=== PATIENT | male | born 1975 | race Caucasian/White ===

== ENCOUNTER 2021-08-12 19:17 | Emergency (ER) | payer MEDICAID ==
[~2021-08-12] VITALS: Ht 160 cm; Wt 63.6 kg
[2021-08-12] MEDS ORDERED: ACETAMINOPHEN 500 MG TABLET PO ONE (20:30)
[2021-08-12] MEDS ORDERED: BUPIVACAINE HCL/PF 0.25% 10 ML VIAL SQ ONE (20:30)
[2021-08-12] MEDS ORDERED: POVIDONE-IODINE 10% 15 ML SOLUTION UD TP ONE (20:30)
[2021-08-12] MEDS ORDERED: IBUPROFEN 600 MG TABLET PO ONE (20:30)
[2021-08-12 20:35] LABS: BASOPHILS % (AUTO) 0.6 % (0.0-2.0); EOSINOPHILS % (AUTO) 0.7 % (1.0-6.0); LYMPHOCYTES % (AUTO) 15.8 % (22.0-44.0); MEAN CORPUSCULAR HEMOGLOBIN 29.3 pg (26.0-34.0); MEAN CORPUSCULAR HGB CONC 34.1 G/dL (31.0-37.0); MEAN CORPUSCULAR VOLUME 86 fL (80-100); MONOCYTES # (AUTO) 1.6 K/uL (0.1-1.0); MONOCYTES % (AUTO) 12.3 % (2.0-9.0); NEUTROPHILS % (AUTO) 70.6 % (40.0-70.0); PLATELET COUNT (AUTO) 229 K/uL (150-450); RED BLOOD CELL COUNT(AUTO) 5.12 MIL/uL (4.50-5.90); RED CELL DISTRIBUTION WIDTH 12.9 % (11.5-14.5)
[2021-08-12 20:42] LABS: ANION GAP 8 mmol/L (8-16); CALCIUM, TOTAL 9.1 mg/dL (8.8-10.5); CARBON DIOXIDE 27 mmol/L (22-29); CHLORIDE 97 mmol/L (98-107); CREATININE 0.79 mg/dL (0.60-1.30); GLOMERULAR FILTR. RATE CALC > 60 mL/min (>60); GLUCOSE,RANDOM 223 mg/dL (70-110); POTASSIUM 3.7 mmol/L (3.5-5.1); SODIUM SERUM 132 mmol/L (136-145); UREA NITROGEN, BLOOD 16 mg/dL (7-18)
[2021-08-12 20:57] LABS: LACTIC ACID 0.9 mmol/L (0.4-2.0)
[2021-08-12] MEDS ORDERED: CEPHALEXIN MONOHYDRATE 500 MG CAPSULE PO ONE (21:15)
[2021-08-12] MEDS ORDERED: SULFAMETHOX/TRIMETH DS 800-160 MG/TABLET PO ONE (21:15)
[2021-08-12 21:35] VITALS: BP 143/82
== END 2021-08-12 22:40 | disposition home or self-care (01) ==
LOC: EMS 19:38
DX: N49.2 Inflammatory disorders of scrotum (principal)
CPT/HCPCS: 55100; 80048; 83605; 85025; 36415; 99284; J3490

== ENCOUNTER 2024-12-29 15:53 | Inpatient (IN) | payer MEDICAID ==
[~2024-12-29] VITALS: Ht 162.6 cm; Wt 72.0 kg
[~2024-12-29 15:53] MED LIST: METF-1185 PO
[2024-12-29 16:21] LABS: GLUCOMETER DEV NAME(LOC) ERT.7; GLUCOSE,POINT OF CARE 488 MG/DL (70-110)
[2024-12-29 16:29] LABS: PLATELET COUNT (AUTO) 277 K/uL (150-450); RED BLOOD CELL COUNT(AUTO) 5.21 MIL/uL (4.50-5.90); RED CELL DISTRIBUTION WIDTH 13.0 % (11.5-14.5); WHITE BLOOD COUNT (AUTO) 14.4 K/uL (4.5-11.0)
[2024-12-29] MEDS: SODIUM CHLORIDE 0.9% 1,000 ML IV ONE (16:35)
[2024-12-29 16:38] LABS: CALCIUM, TOTAL 9.1 mg/dL (8.8-10.5); CREATININE 0.78 mg/dL (0.60-1.30); GLOMERULAR FILTR. RATE CALC > 60 mL/min (>60); SODIUM SERUM 130 mmol/L (136-145); UREA NITROGEN, BLOOD 27 mg/dL (7-18)
[2024-12-29 16:44] LABS: ASPARTATE AMINOTRANSFERASE 5 U/L (15-37); TOTAL PROTEIN, SERUM 7.6 g/dL (6.4-8.2)
[2024-12-29 16:45] LABS: ACETONE,BLOOD TRACE (NEGATIVE)
[2024-12-29] MEDS ORDERED: ONDANSETRON HCL 4 MG/2 ML VIAL IVP PRN (16:45)
[2024-12-29] MEDS ORDERED: ZOLPIDEM TARTRATE 5 MG TABLET PO PRN (16:45)
[2024-12-29] MEDS: *CLINICAL-CEFEPIME DOSING CLINICAL ONE (16:45)
[2024-12-29] MEDS ORDERED: MAGNESIUM HYDROXIDE SUSPENSION 30 ML UDCUP PO PRN (16:45)
[2024-12-29] MEDS ORDERED: DEXTROSE 50%-WATER 25 GM/50 ML SYRINGE IVP PRN (16:45)
[2024-12-29 16:47] LABS: LACTIC ACID 1.4 mmol/L (0.4-2.0)
[2024-12-29 16:53] LABS: GLUCOSE,RANDOM 464 mg/dL (70-110)
[2024-12-29] MEDS: VANCOMYCIN 1.25 GM/WATER(PEG) 250 ML IV ONE (17:03)
[2024-12-29] MEDS: CEFEPIME HCL 2 GM in DEXTROSE 5%-WATER 50 ML IV ONE (17:03)
[2024-12-29] MEDS ORDERED: 0.9% SODIUM CHLORIDE 10 ML SYRINGE IVP ONE (17:18)
[2024-12-29] MEDS ORDERED: SODIUM CHLORIDE 0.9% 100 ML ONE (17:18)
[2024-12-29] MEDS ORDERED: IOHEXOL 350 MG/ML 100 ML VIAL ONE (17:18)
[2024-12-29] MEDS: MORPHINE SULFATE 2 MG/ML SYRINGE IVP ONE (17:21)
[2024-12-29 17:23] LABS: APPEARANCE,URINE CLEAR (CLEAR); GLUCOSE, URINE (UA) >=1000 mg/dL (NEGATIVE); LEUKOCYTE ESTERASE ,URINE NEGATIVE (NEGATIVE); NITRATE,URINE NEGATIVE (NEGATIVE); OCCULT BLOOD,URINE NEGATIVE (NEGATIVE); SPECIFIC GRAVITIY, URINE 1.045 (1.003-1.030)
[2024-12-29] MEDS: INSULIN GLARGINE,HUM.REC.ANLOG 100 UNITS/ML SQ SCH (17:25)
[2024-12-29] MEDS: INSULIN REGULAR, HUMAN 100 UNITS/ML IVP ONE (17:43)
[2024-12-29 18:38] LABS: SQUAMOUS EPITHELIAL CELL,UR Rare /LPF (None Seen)
[2024-12-29 18:47] VITALS: BP 136/77; PULSE 67; RESP 18; TEMP 98.6; O2SAT 100
[2024-12-29 19:51] VITALS: BP 121/71; PULSE 66; RESP 18; TEMP 97.9; O2SAT 95
[2024-12-29] MEDS: ACETAMINOPHEN 325 MG TABLET PO PRN (20:26)
[2024-12-29] MEDS: INSULIN LISPRO 100 UNITS/ML SQ PRN (20:26)
[2024-12-29] MEDS: DOCUSATE SODIUM 100 MG CAPSULE PO SCH (20:27)
[2024-12-30] VITALS (11 sets, daily range): BP systolic 112–128; BP diastolic 68–83; PULSE 54–66; RESP 17–18; TEMP 97.9–99; O2SAT 95–100
[2024-12-30] MEDS ORDERED: HEPARIN SODIUM,PORCINE 5,000 UNITS/ML VIAL SQ SCH
[2024-12-30] MEDS ORDERED: SODIUM CHLORIDE 0.9% 500 ML IV ONE (00:09)
[2024-12-30] MEDS: VANCOMYCIN 750 MG/WATER(PEG) 150 ML IV SCH (00:11)
[2024-12-30] MEDS: CEFEPIME HCL 2 GM in DEXTROSE 5%-WATER 50 ML IV SCH (05:31)
[2024-12-30 08:33] LABS: CALCIUM, TOTAL 8.7 mg/dL (8.8-10.5); CREATININE 0.47 mg/dL (0.60-1.30); GLOMERULAR FILTR. RATE CALC > 60 mL/min (>60); GLUCOSE,RANDOM 238 mg/dL (70-110); SODIUM SERUM 136 mmol/L (136-145); UREA NITROGEN, BLOOD 25 mg/dL (7-18)
[2024-12-30] MEDS: FAMOTIDINE 20 MG TABLET PO SCH (08:44)
[2024-12-30 08:51] LABS: PLATELET COUNT (AUTO) 267 K/uL (150-450); RED BLOOD CELL COUNT(AUTO) 4.62 MIL/uL (4.50-5.90); RED CELL DISTRIBUTION WIDTH 12.8 % (11.5-14.5); WHITE BLOOD COUNT (AUTO) 12.5 K/uL (4.5-11.0)
[2024-12-30] MEDS: SODIUM CHLORIDE 0.9% 1,000 ML IV ONE (08:52)
[2024-12-30 09:06] LABS: GLUCOMETER DEV NAME(LOC) 6N.2C; GLUCOSE,POINT OF CARE 274 MG/DL (70-110)
[2024-12-30 09:06] LABS: GLUCOMETER DEV NAME(LOC) 6N.2C; GLUCOSE,POINT OF CARE 285 MG/DL (70-110)
[2024-12-30] MEDS ORDERED: PROPOFOL 1% 20 ML VIAL IVP ONE (09:35)
[2024-12-30] MEDS ORDERED: SUGAMMADEX SODIUM 200 MG/2 ML VIAL IVP ONE (09:35)
[2024-12-30] MEDS ORDERED: DEXAMETHASONE SOD PHOS 4 MG/ML VIAL ONE (09:35)
[2024-12-30] MEDS ORDERED: ONDANSETRON HCL 4 MG/2 ML VIAL ONE (09:35)
[2024-12-30] MEDS ORDERED: ROCURONIUM BROMIDE 10 MG/ML 5 ML VIAL ONE (09:35)
[2024-12-30] MEDS ORDERED: LIDOCAINE/PF 2% 5 ML VIAL ONE (09:35)
[2024-12-30] MEDS ORDERED: RINGERS SOLUTION,LACTATED 1,000 ML IV ONE (13:07)
[2024-12-30] MEDS ORDERED: BUPIVACAINE 0.25%/EPI 1:200,000/PF 10 ML VIAL ONE (13:09)
[2024-12-30] MEDS ORDERED: BUPIVACAINE HCL/PF 0.25% 30 ML VIAL ONE (13:24)
[2024-12-30] MEDS ORDERED: MEPERIDINE-PF 25 MG/ML VIAL IVP PRN (13:30)
[2024-12-30] MEDS ORDERED: FentaNYL CITRATE PF 100 MCG/2 ML VIAL IVP PRN (13:30)
[2024-12-30] MEDS: OXYGEN THERAPY IH SCH (22:52)
[2024-12-30 23:51] LABS: GLUCOMETER DEV NAME(LOC) 4E.2; GLUCOSE,POINT OF CARE 320 MG/DL (70-110)
[2024-12-31 05:39] VITALS: BP 129/89; PULSE 58; RESP 18; TEMP 98.1; O2SAT 98
[2024-12-31 07:19] LABS: CALCIUM, TOTAL 8.7 mg/dL (8.8-10.5); CREATININE 0.51 mg/dL (0.60-1.30); GLOMERULAR FILTR. RATE CALC > 60 mL/min (>60); GLUCOSE,RANDOM 199 mg/dL (70-110); SODIUM SERUM 138 mmol/L (136-145); UREA NITROGEN, BLOOD 18 mg/dL (7-18)
[2024-12-31 07:40] LABS: GLUCOMETER DEV NAME(LOC) 4E.2; GLUCOSE,POINT OF CARE 192 MG/DL (70-110)
[2024-12-31 08:40] VITALS: BP 108/72; PULSE 53; RESP 18; TEMP 98.1; O2SAT 98
[2024-12-31 09:10] LABS: GLUCOMETER DEV NAME(LOC) 4E.2; GLUCOSE,POINT OF CARE 223 MG/DL (70-110)
[2024-12-31 11:45] LABS: GLUCOMETER DEV NAME(LOC) 6N.2C; GLUCOSE,POINT OF CARE 265 MG/DL (70-110)
[2024-12-31 11:45] LABS: GLUCOMETER DEV NAME(LOC) 6N.2C; GLUCOSE,POINT OF CARE 178 MG/DL (70-110)
[2024-12-31] MEDS: OxyCODONE HCL/ACETAMINOPHEN 5-325 MG TABLET PO PRN ×2 (11:53→19:50)
[2024-12-31 13:45] LABS: GLUCOSE,POINT OF CARE 247 MG/DL (70-110)
[2024-12-31] MEDS: VANCOMYCIN 1GM/WATER(PEG/NADA) 200 ML IV SCH (16:29)
[2024-12-31 16:45] VITALS: BP 114/74; PULSE 53; RESP 18; TEMP 97.7; O2SAT 97
[2024-12-31 19:30] VITALS: BP 103/67; PULSE 56; RESP 18; TEMP 98.1; O2SAT 97
[2024-12-31 19:41] LABS: GLUCOMETER DEV NAME(LOC) 4E.2; GLUCOSE,POINT OF CARE 254 MG/DL (70-110)
[2024-12-31 23:36] LABS: GLUCOMETER DEV NAME(LOC) 4E.2; GLUCOSE,POINT OF CARE 254 MG/DL (70-110)
[2025-01-01 04:26] VITALS: BP 118/81; PULSE 54; RESP 18; TEMP 97.7; O2SAT 97
[2025-01-01 06:05] LABS: GLUCOMETER DEV NAME(LOC) 4E.2; GLUCOSE,POINT OF CARE 124 MG/DL (70-110)
[2025-01-01 06:52] LABS: CREATININE 0.60 mg/dL (0.60-1.30); GLOMERULAR FILTR. RATE CALC > 60 mL/min (>60); GLUCOSE,RANDOM 138 mg/dL (70-110); SODIUM SERUM 137 mmol/L (136-145); UREA NITROGEN, BLOOD 18 mg/dL (7-18)
[2025-01-01 07:05] LABS: CALCIUM, TOTAL 8.5 mg/dL (8.8-10.5)
[2025-01-01 08:11] VITALS: BP 121/85; PULSE 55; RESP 18; TEMP 98.6; O2SAT 100
[2025-01-01] MEDS ORDERED: FentaNYL CITRATE PF 100 MCG/2 ML VIAL IVP ONE (09:52)
[2025-01-01] MEDS ORDERED: MIDAZOLAM HCL 2 MG/2 ML VIAL IVP ONE (09:53)
[2025-01-01 10:46] LABS: GLUCOMETER DEV NAME(LOC) 4E.2; GLUCOSE,POINT OF CARE 265 MG/DL (70-110)
[2025-01-01 13:16] LABS: GLUCOMETER DEV NAME(LOC) 4E.2; GLUCOSE,POINT OF CARE 274 MG/DL (70-110)
[2025-01-01 16:22] VITALS: BP 126/80; PULSE 61; RESP 18; TEMP 98.3; O2SAT 95
[2025-01-01] MEDS ORDERED: SODIUM CHLORIDE 0.9% 500 ML IV ONE (17:44)
[2025-01-01 17:50] LABS: GLUCOMETER DEV NAME(LOC) 4E.2; GLUCOSE,POINT OF CARE 157 MG/DL (70-110)
[2025-01-01 20:11] VITALS: BP 104/70; PULSE 56; RESP 17; TEMP 98.2; O2SAT 98
[2025-01-01 20:51] LABS: GLUCOMETER DEV NAME(LOC) 4E.2; GLUCOSE,POINT OF CARE 158 MG/DL (70-110)
[2025-01-02 04:57] VITALS: BP 119/80; PULSE 53; RESP 17; TEMP 98; O2SAT 98
[2025-01-02 06:06] LABS: GLUCOMETER DEV NAME(LOC) 4E.2; GLUCOSE,POINT OF CARE 158 MG/DL (70-110)
[2025-01-02 07:43] LABS: CALCIUM, TOTAL 8.7 mg/dL (8.8-10.5); CREATININE 0.63 mg/dL (0.60-1.30); GLOMERULAR FILTR. RATE CALC > 60 mL/min (>60); GLUCOSE,RANDOM 162 mg/dL (70-110); SODIUM SERUM 136 mmol/L (136-145); UREA NITROGEN, BLOOD 12 mg/dL (7-18)
[2025-01-02 08:39] VITALS: BP 131/81; PULSE 58; RESP 17; TEMP 98.8; O2SAT 99
[2025-01-02 11:06] LABS: GLUCOMETER DEV NAME(LOC) 4E.2; GLUCOSE,POINT OF CARE 181 MG/DL (70-110)
[2025-01-02 15:59] VITALS: BP 116/74; PULSE 64; RESP 16; TEMP 98.8; O2SAT 99
[2025-01-02 20:00] VITALS: BP 120/83; PULSE 64; RESP 18; TEMP 98.4; O2SAT 98
[2025-01-02 20:26] LABS: GLUCOMETER DEV NAME(LOC) 4E.2; GLUCOSE,POINT OF CARE 269 MG/DL (70-110)
[2025-01-02 20:26] LABS: GLUCOMETER DEV NAME(LOC) 4E.2; GLUCOSE,POINT OF CARE 165 MG/DL (70-110)
[2025-01-02 20:26] LABS: GLUCOMETER DEV NAME(LOC) 4E.2; GLUCOSE,POINT OF CARE 190 MG/DL (70-110)
[2025-01-03 04:15] VITALS: BP 125/80; PULSE 54; RESP 18; TEMP 97.9; O2SAT 99
[2025-01-03 08:56] LABS: CALCIUM, TOTAL 8.6 mg/dL (8.8-10.5); CREATININE 0.60 mg/dL (0.60-1.30); GLOMERULAR FILTR. RATE CALC > 60 mL/min (>60); GLUCOSE,RANDOM 186 mg/dL (70-110); SODIUM SERUM 135 mmol/L (136-145); UREA NITROGEN, BLOOD 10 mg/dL (7-18)
[2025-01-03 08:59] VITALS: BP 135/84; PULSE 58; RESP 18; TEMP 98.1; O2SAT 99
[2025-01-03 10:01] LABS: GLUCOMETER DEV NAME(LOC) 4E.2; GLUCOSE,POINT OF CARE 137 MG/DL (70-110)
[2025-01-03] MEDS ORDERED: INSLAN SQ (11:17)
[2025-01-03] MEDS ORDERED: SULF1TAB94 PO (11:17)
== END 2025-01-03 11:10 | disposition home or self-care (01) | DRG 501 ==
LOC: EMS 15:53 → EDH 16:35 → 6S 18:23 → 4E 12-30 17:44
PROVIDERS: ADMIT Internal Medicine; ATTEND Internal Medicine
PROC: 0V950ZZ Drainage of Scrotum, Open Approach (ICD-10-PCS; principal; 2024-12-30 14:00)
DX: N49.2 Inflammatory disorders of scrotum (principal); E87.1 Hypo-osmolality and hyponatremia; E11.65 Type 2 diabetes mellitus with hyperglycemia; I10 Essential (primary) hypertension; K59.00 Constipation, unspecified; N50.82 Scrotal pain; Z79.4 Long term (current) use of insulin; Z83.3 Family history of diabetes mellitus; Z91.148 Patient's other noncompliance with medication regimen for other reason; Z79.899 Other long term (current) drug therapy
CPT/HCPCS: 74177; 76870; 80048; 80076; 80202; 81001; 82009; 82962; 83605; 85025; 87015; 87040; 87070; 87081; 87101; 87205; 87206; 96365; 96368; 96372; 99285; G0378; J0692; J1100; J1815; J2250; J2270; J2405; J2704; J3010; J3490; J7030; J7040; J7050; J7060; J7120; 36415-L1; 36415-TC; Z7610